=== PATIENT | male | born 1975 | race Caucasian/White ===

== ENCOUNTER 2024-09-30 11:56 | Emergency (ER) | payer SELFPAY ==
[2024-09-30] VITALS (55 sets, daily range): BP systolic 153–202; BP diastolic 77–115; PULSE 46–62; RESP 5–21; TEMP 36.6; O2SAT 93–100
--- NOTE | 2024-09-30 12:00 | RT.EKG_ITS ---
APPROVED REPORT Exam: Resting ECG Reason for Exam: Chest tightness, SOB Patient Location: E HR:62 bpm ECG Measurements Heart Rate 62 AXIS SD 158 P 43 QRSd 106 QRS 54 QT 388 T 56 QTc 394 Conclusion Sinus rhythm, rate 62 No interval abnormalities No STEMI No priors available for comparison
[2024-09-30 13:03] LABS: Abs Immature Grans 0.01 10^3/uL (0.0-0.06); Absolute Basophil Count 0.07 10^3/uL (0.0-0.2); Absolute Eosinophil Count 0.16 10^3/uL (0.0-0.7); Absolute Lymphocyte Count 1.92 10^3/uL (1.2-3.4); Absolute Monocyte Count 0.48 10^3/uL (0.1-0.8); Absolute Neutrophil Count 3.27 10^3/uL (1.2-6.7); Basophils % 1.2 %; Eosinophils % 2.7 %; HCT 45.4 % (40.0-50.0); HGB 15.9 g/dL (13.5-17.5); Immature Grans % 0.2 %; Lymphocytes % 32.5 %; MCH 28.7 pg (27.0-33.0); MCV 82 fL (80-95); MPV 10.7 fL (8.0-11.0); Monocytes % 8.1 %; Neutrophils % 55.3 %; Platelet Count 197 10^3/uL (130-400); RBC 5.54 10^6/uL (4.36-5.78); RDW 12.4 % (11.8-14.1); WBC 5.91 10^3/uL (4.4-10.8)
--- NOTE | 2024-09-30 13:10 | DI.RAD_ITS ---
Exam(s) XR CHEST 2V PA LATERAL EXAM: XR CHEST 2V PA LATERAL CLINICAL HISTORY: Chest pain. TECHNIQUE: 2D digital imaging was performed. COMPARISON: No exams were available for comparison FINDINGS: 2 views: Heart size is normal. The mediastinum is not widened. Lungs are clear. No infiltrates nor pleural effusions. IMPRESSION: No acute pulmonary findings. DATA REPOSITORY: RADIATION DOSE DELIVERED:
[2024-09-30] MEDS: Albuterol/Ipratropium 3 ML UPD VIAL UPD (13:15)
[2024-09-30 13:22] LABS: ALT 29 U/L (16-63); AST 19 U/L (15-37); Albumin 3.7 g/dL (3.4-5.0); Alkaline Phosphatase 56 U/L (46-116); Anion Gap 9.6 mmol/L (3-11); BUN 13 mg/dL (7-18); Bilirubin, Total 0.7 mg/dL (0.2-1.0); CO2 27.4 mmol/L (21.0-32.0); CREATININE 0.9 mg/dL (0.70-1.30); Calcium 8.9 mg/dL (8.5-10.1); Chloride 102 mmol/L (98-107); Glucose 107 mg/dL (74-106); Lipase 26 U/L (<78); NT-proBNP 83 pg/mL (<300); Potassium 3.9 mmol/L (3.5-5.1); Sodium 139 mmol/L (136-145); Total Protein 7.9 g/dL (6.4-8.2); Troponin I 15 ng/L (<or=76)
[2024-09-30 13:45] LABS: D-Dimer 598 ng/mlFEU (<500)
[2024-09-30 13:50] LABS: Prothrombin Time 10.1 sec (9.1-11.1)
[2024-09-30 14:03] LABS: PTT Activated 30.8 sec (20.6-30.2)
--- NOTE | 2024-09-30 14:03 | ED.GENADUL_ITS ---
Discharge Plan Disposition Patient Disposition: Home Condition: Stable Discharge Details Clinical Impression: Bronchitis, BP (high blood pressure), Kidney cysts Primary Care Provider: Lee Ann Farah ED Provider: Fabian Bishop Home Meds and New Rx's Prescriptions: New prednisone 50 mg tablet 50 mg PO DAILY Qty: 5 0RF albuterol sulfate [Ventolin HFA] 90 mcg/actuation HFA aerosol inhaler 2 puff inhalation Q6H PRNQty: 6.7 0RF Discharge Instructions Instructions: Acute bronchitis, High Blood Pressure ED Additional Instructions: Your workup today overall is very reassuring. No evidence of cardiac issue, blood clot of the lung, or bacterial infectious process. A prescription for prednisone and albuterol has been given for your bronchitis, take as directed. Blood pressure was noted to be quite high when you first came to the ER, it did decrease during your stay but is still overall higher than we would like. Lastly, there was AN incidental cyst on your kidney. I have placed you on the care management list to help expedite establishing a primary care provider. You will need to have the cyst followed, likely a renal ultrasound or nonemergent CT. They may also discuss your blood pressure with you as getting back on blood pressure medications. Please watch for new, worsening, or evolving symptoms and return immediately to the ER. Discharge Data Discharge Date/Time-TO BE ENTERED AT DEPARTURE: 09/30/24 15:45 HPI General Mode of arrival: ambulatory . Date/Time Provider Initiated Documentation: 09/30/24 12:17 . Limitations to Documentation: no limitations . Information obtained by: patient . History of Present Illness 49 year old M presents to the emergency department with the chief complaint of Chest congestion, described as moderate, with intensity rated at 4. Quality is described as other (Tightness), and is localized to the chest. Patient reports no radiation. Patient started experiencing this day(s) (3) and it has been constant. No relieving factors improve symptom(s), No exacerbating factors reported . Patient notes cough and shortness of breath. Patient did receive the following treatments prior to arrival, none Related Data Home Medications ?Medication ?Instructions ?Recorded ?Confirmed albuterol sulfate 90 mcg/actuation 2 puff inhalation Q6H PRN #6.7 09/30/24 aerosol inhaler (Ventolin HFA) grams prednisone 50 mg tablet 50 mg PO DAILY #5 tabs 09/30/24 Previous Rx's ?Medication ?Instructions ?Recorded albuterol sulfate 90 mcg/actuation 2 puff inhalation Q6H PRN #6.7 09/30/24 aerosol inhaler (Ventolin HFA) grams prednisone 50 mg tablet 50 mg PO DAILY #5 tabs 09/30/24 Allergies Allergy/AdvReac Type Severity Reaction Status Date / Time codeine AdvReac Intermediate Other (See Verified 09/30/24 12:08 Comment) General Stated Complaint: [facility] LEOBARDO: 3 Review of Systems Constitutional Constitutional: Denies fever(s), Denies headache(s) and Denies weakness Eyes Eyes: Denies change in vision ENT Ears, Nose, Mouth, and Throat: Denies headache(s) and Denies neck pain Cardiovascular Cardiovascular: Denies chest pain, Denies leg edema, Reports dyspnea and Reports other (Chest tightness) Respiratory Respiratory: Reports cough, Reports dyspnea and Reports wheezing Gastrointestinal Gastrointestinal: Denies abdominal pain, Reports diarrhea and Denies nausea Musculoskeletal Musculoskeletal: Denies back pain and Denies neck pain Integumentary/Breasts Skin/Breast: Denies rash Neurologic Neurologic: Denies headache(s) and Denies weakness Allergic/Immunologic Allergic/Immunologic: Reports wheezing Exam Const General: cooperative, healthy appearing, comfortable and no acute distress Orientation: alert, awake and oriented x3 HENMT Head: normal to inspection, normocephalic and atraumatic General nose exam: nasal discharge clear Mouth: moist mucous membranes Throat: posterior oropharynx normal Eyes General: appearance normal, both eyes and all related structures Conjunctivae: conjunctivae normal Neck Neck: normal visual inspection, full ROM, trachea midline and supple Resp Effort & Inspection: normal respiratory effort, able to speak in complete sentences and cough Quality of cough: dry (mild) Auscultation: diminished lung sounds bilaterally in the lower lung ramirez and wheezes (Scattered) Cardio Rate: regular rate Rhythm: regular rhythm GI Palpation: soft and nontender Skin General skin exam: no rashes or lesions noted Neuro General: patient alert, patient awake, moves all extremities and no focal motor deficits Cognition: normal cognition Speech: speech normal Gait: normal gait Sensory Exam: no sensory deficits noted Extrem General: normal to inspection, full ROM, capillary refill normal and no pedal edema Psych Appearance: grossly normal Mental Status: mental status grossly normal Course Vital Signs Vital signs: Vital Signs Temperature 36.6 C 05/16/25 12:05 Pulse 60 09/30/24 12:05 Respiratory Rate 20 09/30/24 12:05 Blood Pressure 202/115 H 09/30/24 12:05 Pulse Oximetry 93 09/30/24 12:05 Temperature 36.6 C 09/30/24 12:05 Temperature Source Oral 09/30/24 12:05 Pulse 52 L 09/30/24 13:50 Pulse 49 L 09/30/24 13:50 Respiratory Rate 10 L 09/30/24 13:50 Respiratory Effort Short of Breath 09/30/24 13:01 Respiratory Depth Normal 09/30/24 13:01 Respiratory Pattern Normal 09/30/24 13:01 Blood Pressure 176/90 H 09/30/24 13:47 Blood Pressure Mean 122 09/30/24 13:47 Blood Pressure Position Sitting 09/30/24 12:05 Pulse Oximetry 96 09/30/24 13:50 Oxygen Delivery Method Room Air 09/30/24 12:05 Oxygen Flow Rate 0 09/30/24 12:05 Pain Level 6 09/30/24 12:05 Lab/Test Results Lab/Test Results: Laboratory Tests Range/Units 09/30/24 12:55 WBC (4.4-10.8) 10^3/uL 5.91 RBC (4.36-5.78) 10^6/uL 5.54 Hgb (13.5-17.5) g/dL 15.9 Hct (40.0-50.0) % 45.4 MCV (80-95) fL 82 MCH (27.0-33.0) pg 28.7 MCHC (32.0-36.0) % 35.0 RDW (11.8-14.1) % 12.4 Plt Count (130-400) 10^3/uL 197 MPV (8.0-11.0) fL 10.7 Immature Gran % % 0.2 Neutrophils % % 55.3 Lymphocytes % % 32.5 Monocytes % % 8.1 Eosinophils % % 2.7 Basophils % % 1.2 Nucleated RBC % (0.0-0.3) % 0.0 Absolute Neutrophils (1.2-6.7) 10^3/uL 3.27 Absolute Lymphocytes (1.2-3.4) 10^3/uL 1.92 Absolute Monocytes (0.1-0.8) 10^3/uL 0.48 Absolute Eosinophils (0.0-0.7) 10^3/uL 0.16 Absolute Basophils (0.0-0.2) 10^3/uL 0.07 PT (9.1-11.1) sec 10.1 INR (0.9-1.1) 1.0 D-Dimer (<500) ng/mlFEU 598 H Sodium (136-145) mmol/L 139 Potassium (3.5-5.1) mmol/L 3.9 Chloride (98-107) mmol/L 102 Carbon Dioxide (21.0-32.0) mmol/L 27.4 Anion Gap (3-11) mmol/L 9.6 BUN (7-18) mg/dL 13 Creatinine (0.70-1.30) mg/dL 0.9 Est GFR (CKD-EPI 2020) (mL/min/1.73m2) 104.70 Glucose (74-106) mg/dL 107 H Calcium (8.5-10.1) mg/dL 8.9 Magnesium (1.8-2.4) mg/dL 2.0 Total Bilirubin (0.2-1.0) mg/dL 0.7 AST (15-37) U/L 19 ALT (16-63) U/L 29 Alkaline Phosphatase (46-116) U/L 56 Troponin I (<or=76) ng/L 15 NT-Pro-B Natriuret Pep (<300) pg/mL 83 Total Protein (6.4-8.2) g/dL 7.9 Albumin (3.4-5.0) g/dL 3.7 Lipase (<78) U/L 26 Medical Decision Making This is a 49-year-old male, has not seen a PCP in 10-15 years. He reports history of hypertension for which she has not taken any medication in at least 10 years. He smokes about three-quarter pack of cigarettes daily. Is coming in today for about 3-day history of what began as nasal congestion, URI-like symptoms, has progressed into his chest with a dry cough, and chest tightness. He denies any chest pain. Mild dry nonproductive cough. He did present quite hypertensive at 202/115 but subsequent repeat blood pressures did reveal a encouraging downward trend. No additional intervention was required. Examination most consistent with a viral bronchitis but differential includes, not excluded to pneumonia, cardiac etiology, dissection, etc. Plan to obtain IV access, give an albuterol neb to see how he responds. Will initiate a cardiac workup including serial troponins and a D-dimer. EKG at 1205, sinus rhythm, ventricular rate of 62, no STEMI. Upon reevaluation patient no longer with diminished bilateral base of the lungs. He occasionally has a scattered wheeze with mostly clear with coughing. Chest x-ray read by me and confirmed by radiology as no acute pulmonary findings. Laboratory values are overall very reassuring. No elevated white count. Initial troponin of 15, repeat of 28. No significant upward trend especially in the setting of symptoms for 3 days, we will not obtain a third troponin. D- dimer is minimally elevated at 598. Will proceed with CTA of the chest Chest CTA ordered and reviewed, read by radiology as: 1. No evidence of pulmonary embolism, thoracic aortic dissection or aneurysm. 2. 3.4 cm round hypodensity in the left kidney. This may represent a simple cyst. It is incompletely characterized on this current examination. A nonemergent CT scan of the abdomen with contrast or renal ultrasound may be obtained for further characterization. 3. Mild bronchial wall thickening which can be seen with bronchitis. No mucous plugging is seen. Discussed workup and findings in length with patient. Discussed the need for outpatient follow-up of his incidental kidney cyst and hypertension. Will place on the care management list to help expedite outpatient follow-up workup does not reveal any evidence of acute bacterial infection, cardiac etiology, or PE. Will provide a single dose of steroids p.o. now. Will provide prescription of albuterol and a burst dose of steroids to treat bronchitis. Discussed watching for new, evolving, worsening symptoms and return immediately to the ER. Standard discharge and return precautions were provided. Patient understands, is agreeable to this plan, and has no additional questions or concerns upon discharge. This documentation was generated using [employer] system, please disregard any oddities of phrase or misspellings. Medical Records Medical records reviewed: Yes I reviewed the patient's medical records. Lab Data Lab results reviewed: Yes I reviewed the patient's lab results. Labs: Laboratory Tests Range/Units 09/30/24 09/30/24 09/30/24 12:55 13:57 15:31 WBC (4.4-10.8) 10^3/uL 5.91 RBC (4.36-5.78) 10^6/uL 5.54 Hgb (13.5-17.5) g/dL 15.9 Hct (40.0-50.0) % 45.4 MCV (80-95) fL 82 MCH (27.0-33.0) pg 28.7 MCHC (32.0-36.0) % 35.0 RDW (11.8-14.1) % 12.4 Plt Count (130-400) 10^3/uL 197 MPV (8.0-11.0) fL 10.7 Immature Gran % % 0.2 Neutrophils % % 55.3 Lymphocytes % % 32.5 Monocytes % % 8.1 Eosinophils % % 2.7 Basophils % % 1.2 Nucleated RBC % (0.0-0.3) % 0.0 Absolute Neutrophils (1.2-6.7) 10^3/uL 3.27 Absolute Lymphocytes (1.2-3.4) 10^3/uL 1.92 Absolute Monocytes (0.1-0.8) 10^3/uL 0.48 Absolute Eosinophils (0.0-0.7) 10^3/uL 0.16 Absolute Basophils (0.0-0.2) 10^3/uL 0.07 PT (9.1-11.1) sec 10.1 INR (0.9-1.1) 1.0 APTT (20.6-30.2) sec 30.8 H D-Dimer (<500) ng/mlFEU 598 H Sodium (136-145) mmol/L 139 Potassium (3.5-5.1) mmol/L 3.9 Chloride (98-107) mmol/L 102 Carbon Dioxide (21.0-32.0) mmol/L 27.4 Anion Gap (3-11) mmol/L 9.6 BUN (7-18) mg/dL 13 Creatinine (0.70-1.30) mg/dL 0.9 Est GFR (CKD-EPI 2020) (mL/min/1.73m2) 104.70 Glucose (74-106) mg/dL 107 H Calcium (8.5-10.1) mg/dL 8.9 Magnesium (1.8-2.4) mg/dL 2.0 Total Bilirubin (0.2-1.0) mg/dL 0.7 AST (15-37) U/L 19 ALT (16-63) U/L 29 Alkaline Phosphatase (46-116) U/L 56 Troponin I (<or=76) ng/L 15 20 Cancelled NT-Pro-B Natriuret Pep (<300) pg/mL 83 Total Protein (6.4-8.2) g/dL 7.9 Albumin (3.4-5.0) g/dL 3.7 Lipase (<78) U/L 26 Quality:SDOH Health Related Social Needs: No Data to Display PFSH All Active Problems (Updated 09/30/24 @ 15:32 by MOISES Barnes) Kidney cysts (Acute) BP (high blood pressure) (Chronic) Bronchitis (Acute) Social History Smoking/Tobacco Use Status: Unknown Smoking risk assessment performed?: Yes Alcohol Intake: current Alcohol Intake frequency: holidays/special occasions only Drug use: Never Substance use type: does not use Do you feel safe at home: Yes Do you feel safe in your relationship?: Yes
[2024-09-30] MEDS: predniSONE 20 MG TAB 60 MG PO (14:07)
[2024-09-30 14:22] LABS: Troponin I 20 ng/L (<or=76)
[2024-09-30] MEDS: Normal Saline - Diluent 50 ML VIAL IJ (14:34)
[2024-09-30] MEDS: Omnipaque 350 MG/ML 100 ML BTL IJ (14:39)
--- NOTE | 2024-09-30 14:39 | DI.CT_ITS ---
Exam(s) CT CHEST PE CTA EXAM: CT CHEST PE CTA CLINICAL HISTORY: sob,tightness,elevated dimer. TECHNIQUE: Imaging Protocol: Axial CT angiography was performed with multi-slice acquisition and mu lti-planar and/or 3D reconstructions. Lung Computer Aided Detection (CAD) was utilized. CONTRAST MATERIAL: Intravenous: Omnipaque 350 contrast volume:100 mL COMPARISON: CR XR CHEST 2V PA LATERAL from 09/30/2024 FINDINGS: Tracheobronchial tree: Patent where visualized. No bronchiectasis. There is mild bronchial wall thic kening. No mucous plugging is seen. Pulmonary parenchyma: Emphysematous changes are present in the lungs. No focal consolidating infiltr ates are present. No architectural distortion. Pulmonary Arteries: No evidence of filling defect to suggest pulmonary emboli. Mediastinum and Mariann: No dominant adenopathy or fluid collection. The esophagus is unremarkable. Visualized thyroid gland: Unremarkable. Pleura: No effusion or pneumothorax. Heart: The heart is not dilated. Mild coronary artery calcification is present. No pericardial effus ion. Aorta: Thoracic aorta non-dilated. No evidence of dissection. Mild atherosclerotic calcification is p resent. Upper abdomen: There is a 3.5 cm round hypodensity in the left kidney. Soft tissues: Unremarkable. Bones: Within normal limits for the patient's age. IMPRESSION: 1. No evidence of pulmonary embolism, thoracic aortic dissection or aneurysm. 2. 3.4 cm round hypodensity in the left kidney. This may represent a simple cyst. It is incompletel y characterized on this current examination. A nonemergent CT scan of the abdomen with contrast or r enal ultrasound may be obtained for further characterization. 3. Mild bronchial wall thickening which can be seen with bronchitis. No mucous plugging is seen. RADIATION DOSE DELIVERED: 138.25mGy.cm Total DLP DATA REPOSITORY: All CT scans at this facility are submitted to the National Radiology Data Registry (NRDR) Dose Index Registry (DIR) with the [employer] (A[employer]). RADIATION OPTIMIZATION: All CT scans at this facility use at least one of these dose optimization te chniques: automated exposure control; mA and/or kV adjustment per patient size (includes targeted exa ms where dose is matched to clinical indication); or iterative reconstruction.
--- NOTE | 2024-10-03 07:08 | NUR.NOTE ---
Access chart to gt more information to complete the referral requested for needs PCP. Nursing Note:
== END 2024-09-30 15:45 | disposition home or self-care (01) ==
PROVIDERS: Emergency Provider Physician Assistant; PCP Nurse Practitioner Family
DX: J40 Bronchitis, not specified as acute or chronic (principal); I10 Essential (primary) hypertension; N28.1 Cyst of kidney, acquired
CPT/HCPCS: 99284 ×2; 94640; 36415; 71275; 80053; 83690; 93005; 71046; 83735; 83880; 84484; 85025; 85379; 85610; 85730; 93010; J3490; J7512; J7620